=== PATIENT | male | born 1995 | race Caucasian/White ===

== ENCOUNTER 2023-05-09 12:13 | Emergency (ER) | payer OTHER, SELFPAY ==
--- NOTE | ~2023-05-09 | CT_ITS ---
EXAMINATION: CT abdomen pelvis w con DATE: 05/09/2023 16:47 INDICATION: Right-sided abdominal pain TECHNIQUE: Computed tomography (CT) of the abdomen and pelvis was performed with 100 mL Omnipaque-350 intravenous contrast. Automated exposure control and iterative reconstruction technique were employe d. The dose-length product was 364.14 mGy-cm. COMPARISON: None FINDINGS: Lung bases are clear. Heart size is normal. No pericardial or pleural effusion. 9 mm cyst in the caud ate lobe of the liver. Gallbladder, spleen, pancreas, bilateral adrenal glands and kidneys are normal . Normal retrocecal appendix. Moderate amount of stool scattered throughout the colon. No bowel obstr uction. Bladder is normal. No free intraperitoneal gas or fluid. No pathologically enlarged abdominal or pelvic lymphadenopathy. Bones are unremarkable. IMPRESSION: 1. No acute intra-abdominal/pelvic process. Reviewed, dictated and finalized at location A.
--- NOTE | ~2023-05-09 | CT_ITS ---
EXAMINATION: CT brain wo con INDICATION: Headache COMPARISON: None TECHNIQUE: Standard unenhanced head CT. The dose-length product (DLP) was 681.00 mGy-cm. The mA was a djusted according to patient size. Iterative reconstruction technique was employed. FINDINGS: No intracranial hemorrhage, acute infarction, or abnormal mass lesion. The ventricles are n ormal. No abnormal mass effect or midline shift. The casanova-white matter differentiation is normal. The basal cisterns are patent. The orbits are normal. There is mild mucosal thickening of the paranasal sinuses. IMPRESSION: 1. No acute intracranial abnormality. Reviewed, dictated and finalized at location A.
[2023-05-09 12:22] VITALS: BP 132/75; PULSE 94; RESP 20; TEMP 36.6; O2SAT 100
[2023-05-09 12:38] LABS: Basophils Percent Auto 0.4 % (0.2-1.2); Eosinophils Absolute Auto 0.1 K/mm3 (0-0.3); Eosinophils Percent Auto 0.7 % (0-4.4); Hematocrit 47.7 % (42.0-52.0); Hemoglobin 16.8 g/dL (14.0-18.0); Immature Granulocyte Absolute 0.03 K/mm3 (0.00-0.031); Immature Granulocyte Percent A 0.3 % (0-0.5); Lymphocytes Absolute Auto 2.54 K/mm3 (0.9-3.2); Lymphocytes Percent Auto 27.8 % (18.3-44.2); Mean Corpuscular HGB Conc 35.2 g/dl (32-36); Mean Corpuscular Hemoglobin 33.1 pg (26-34); Mean Corpuscular Volume 94.1 fl (80-100); Mean Platelet Volume 8.8 fl (7.4-10.4); Monocytes Absolute Auto 0.9 K/mm3 (0.1-0.6); Monocytes Percent Auto 9.4 % (2.6-8.5); Neutrophils Absolute Auto 5.6 K/mm3 (1.3-6.7); Neutrophils Percent Auto 61.4 % (45.5-73.1); Platelet Count Result 282 k/mm3 (150-375); Red Blood Count 5.07 M/mm3 (4.6-6.20); Red Cell Distribution Width 12.1 % (11.5-14.5); White Blood Count 9.2 K/mm3 (4.5-10.0)
[2023-05-09 12:52] LABS: Alanine Aminotransferase 30 U/L (6-50); Albumin Level 5.6 g/dL (3.5-5.1); Alkaline Phosphatase 87 U/L (38-126); Anion Gap 12 mmol/L (8-16); Aspartate Amino Transferase 41 U/L (17-59); Bilirubin,Total 0.8 mg/dL (0.2-1.3); Blood Urea Nitrogen 31 mg/dL (9-20); Calcium 10.5 mg/dL (8.4-10.2); Carbon Dioxide 28 mmol/L (22-30); Chloride 97 mmol/L (98-107); Estimated CRCL calculation 64 ml/min; Estimated Glomerular Filt Rate 56; Glucose 105 mg/dL (65-110); Lipase 69 U/L (23-300); Potassium 4.1 mmol/L (3.4-5.0); Sodium 137 mmol/L (137-145)
[2023-05-09 13:16] LABS: Appearance Urine Cloudy (Clear); Bacteria Urine None Seen /hpf; Bilirubin Urine 1+ (Negative); Blood Urine Negative (Negative); Color Urine Dark Yellow (Yellow); Glucose Urine UA Negative (Negative); Hyaline Casts Urine Present /lpf; Ketones Urine Trace mg/dL (Negative); Leukocyte Esterase Ur Negative LEU/UL (Negative); Mucus Urine Present /lpf; Nitrate Urine Negative (Negative); Non Pathogenic Casts >20; Protein Urine 2+ mg/dL (Negative); RBC Urine 0-2 /hpf (0-2); Specific Grav Ur 1.034 (1.001-1.035); Squamous Epithelial Cell Urine None seen /hpf (Few); WBC Urine 0-5 /hpf; Waxy Casts Urine Present /lpf; pH Urine 5.5 (5.0-9.0)
[2023-05-09 13:25] LABS: Add Urine Microscopic? YES
[2023-05-09 14:50] VITALS: BP 124/78; PULSE 71
[2023-05-09 14:51] VITALS: BP 134/73; PULSE 83
[2023-05-09 14:52] VITALS: BP 126/87; PULSE 101
[2023-05-09 15:30] VITALS: BP 127/87; PULSE 89; RESP 20; O2SAT 100
--- NOTE | 2023-05-09 16:29 | ED.NAVMDI ---
HPI - Nausea/Vomiting/Diarrhea General Chief complaint: Nausea/Vomiting/Diarrhea Stated complaint: dehydrated Time Seen by Provider: 05/09/23 15:33 History of Present Illness HPI Narrative: 27-year-old male reports for evaluation for nausea, vomiting and generalized muscle cramps that started at 0700 today. 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 States yesterday after working outside, he felt fine but did have 1 episode of vomiting when he got to go home. Patient states he felt normal this morning, but then after an hour to an hour and a half of work outside, he began to feel dizzy and nauseous. States he quit working and has had multiple episodes of vomiting since then. He states the dizziness has resolved but he does have a bitemporal headache that is new in onset. He denies history of headaches and feels this is the worst headache of his life. He is reporting abdominal cramping all over, worse in his low back. He reports decreased urine output, states he has not been able to urinate since yesterday. He denies vision changes, focal numbness or weakness, neck pain, fever, body aches or chills, chest pain or shortness of breath, cough or congestion, diarrhea, syncope, head injury. Last bowel movement yesterday was normal. Related Data Allergies Allergy/AdvReac Type Severity Reaction Status Date / Time No Known Allergies Allergy Verified 05/09/23 15:35 Review of Systems Review of Systems: CONSTITUTIONAL: Denies fever, chills EYES: Denies visual changes, redness, or discharge. ENT: Denies rhinorrhea, congestion, sore throat, or otalgia. CARDIOVASCULAR: Denies chest pain, palpitations, or edema. RESPIRATORY: Denies cough or dyspnea. GASTROINTESTINAL: Denies abdominal pain, nausea, vomiting, or diarrhea. GENITOURINARY: Denies dysuria or hematuria. SKIN: Denies rash or itching. MUSCULOSKELETAL: See HPI NEUROLOGIC: See HPI PSYCHIATRIC: Denies anxiety or depression. Exam Narrative: GENERAL: Well-appearing, in no acute distress. Patient resting comfortably in exam bed. He is pleasant and conversational. HEAD: Normocephalic EYES: PERRLA, EOMI ENT: Nares clear. Mucous membranes moist. Oropharynx without tonsillar hypertrophy exudate or other lesions. Bilateral TMs are casanova and nonbulging. NECK: Supple. No nuchal rigidity CHEST: No respiratory distress. Clear to auscultation, no adventitious breath sounds. HEART: Regular rate and rhythm. No murmur heard. Normal peripheral pulses. ABDOMEN: Normal active bowel sounds. Abdomen is soft with tenderness in the right upper quadrant and right lower quadrant with guarding. No rigidity or rebound. No CVA tenderness. EXTREMITIES: Normal range of motion. No edema. SKIN: Warm, dry, no rash. NEURO: No focal deficits. Alert and oriented x3. Cranial nerves II through XII intact. Strength 5/5 in BUE and BLE. Sensation intact throughout. Normal finger-nose. No pronator drift. PSYCH: Normal mood and affect. Course Vital Signs Vital signs: Vital Signs Temperature 97.9 F 05/09/23 12:22 Pulse Rate 94 05/09/23 12:22 Respiratory Rate 20 05/09/23 12:22 Blood Pressure 132/75 05/09/23 12:22 Pulse Oximetry 100 05/09/23 12:22 Oxygen Delivery Room Air 05/09/23 12:22 Temperature 97.9 F 05/09/23 12:22 Pulse Rate 89 05/09/23 15:30 Respiratory Rate 20 05/09/23 15:30 Blood Pressure 127/87 05/09/23 15:30 Pulse Oximetry 100 05/09/23 15:30 Oxygen Delivery Room Air 05/09/23 12:22 MDM - Nausea/Vomiting/Diarrhea MDM Narrative Medical decision making narrative: 27-year-old male reports for evaluation for nausea, vomiting and generalized muscle cramps that started at 0700 today after working outside in the heat for the past multiple days. See HPI for further history. Vitals are stable patient is well-appearing on exam. Exam is significant for tenderness to the right upper quadrant and righ
[2023-05-09] MEDS: SODIUM CHLORIDE 0.9% IV 1,000 ML 999 ML IV CONT ×2 (16:47→16:48)
[2023-05-09] MEDS: diphenhydrAMINE HCl INJ 50 MG/ML VIAL 25 MG IV PUSH (16:48)
[2023-05-09] MEDS: KETOROLAC 30 MG/ML VIAL (*BKC) IV PUSH (16:49)
[2023-05-09] MEDS: PROCHLORPERAZINE EDISYLATE 10 MG/2 ML VIAL IV PUSH (16:51)
[2023-05-09 17:03] LABS: Creatine Kinase 605 U/L (55-170); Magnesium 2.3 mg/dL (1.6-2.3)
--- NOTE | 2023-05-09 17:20 | PC.NURSE ---
Pt not in room. IV found pulled out on the floor.
== END 2023-05-09 17:20 | disposition left against medical advice (07) ==
PROVIDERS: Emergency Medicine; Emergency Provider Physician Assistant
DX: E86.0 Dehydration (principal)
CPT/HCPCS: 36415; 70450; 74177; 80053; 81001; 82550; 83690; 83735; 85025; 96361; 96374; 96375; 99284; J0780; J1200; J1885; J7030; Q9967